=== PATIENT | female | born 1995 | race Caucasian/White ===

== ENCOUNTER 2018-01-02 22:32 | Emergency (ER) | payer SELFPAY ==
[2018-01-02 23:44] LABS: Urine Blood NEGATIVE (NEG); Urine Glucose NEGATIVE (NEG); Urine Protein NEGATIVE (NEG); Urine Specific Gravity 1.015 (1.005-1.030); Urine pH 7.5 (5.0-7.0)
[2018-01-03 01:39] LABS: Urine Bacteria <20 /HPF (<20); Urine Culture Reflex Order NOT NEEDED; Urine RBC <5 /HPF (NONE SEEN)
--- NOTE | 2018-01-03 02:25 | EDPHYS ---
Physician Documentation [facility] Name: Josh Gibson Age: 22 yrs Sex: Female : 1995 Arrival Date: 01/02/2018 Time: 22:33 Bed 16 Private MD: ED Physician Ollie Sapp HPI: 01/03 00:45 This 22 yrs old Female presents to ER via Ambulatory with complaints of gs Kidney Pain. 00:45 The patient complains of pain in the left low back. The pain radiates to the abdomen. gs Onset: The symptoms/episode began/occurred yesterday. Modifying factors: The symptoms are alleviated by nothing. the symptoms are aggravated by nothing. Associated signs and symptoms: Pertinent positives: dysuria, urinary frequency, Pertinent negatives: fever. Severity of pain: At its worst the pain was moderate in the emergency department the pain has improved markedly. The patient has experienced similar episodes in the past, a few times. The patient has not recently seen a physician. 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 - Social history:: Smoking status: Patient/guardian denies using tobacco. - Ebola Screening: : No symptoms or risks identified at this time. ROS: 01/03 00:45 All other systems are negative. gs Exam: 00:45 Head/Face: Normocephalic, atraumatic. Eyes: Pupils equal round and reactive to light, gs extra-ocular motions intact. Lids and lashes normal. Conjunctiva and sclera are non-icteric and not injected. Cornea within normal limits. Periorbital areas with no swelling, redness, or edema. ENT: Nares patent. No nasal discharge, no septal abnormalities noted. Tympanic membranes are normal and external auditory canals are clear. Oropharynx with no redness, swelling, or masses, exudates, or evidence of obstruction, uvula midline. Mucous membranes moist. Neck: Trachea midline, no thyromegaly or masses palpated, and no cervical lymphadenopathy. Supple, full range of motion without nuchal rigidity, or vertebral point tenderness. No Meningismus. Chest/axilla: Normal chest wall appearance and motion. Nontender with no deformity. No lesions are appreciated. Cardiovascular: Regular rate and rhythm with a normal S1 and S2. No gallops, murmurs, or rubs. Normal PMI, no JVD. No pulse deficits. Respiratory: Lungs have equal breath sounds bilaterally, clear to auscultation and percussion. No rales, rhonchi or wheezes noted. No increased work of breathing, no retractions or nasal flaring. Abdomen/GI: Soft, non-tender, with normal bowel sounds. No distension or tympany. No guarding or rebound. No evidence of tenderness throughout. Skin: Warm, dry with normal turgor. Normal color with no rashes, no lesions, and no evidence of cellulitis. MS/ Extremity: Pulses equal, no cyanosis. Neurovascular intact. Full, normal range of motion. Neuro: Awake and alert, GCS 15, oriented to person, place, time, and situation. Cranial nerves II-XII grossly intact. Motor strength 5/5 in all extremities. Sensory grossly intact. Cerebellar exam normal. Normal gait. 00:45 Constitutional: The patient appears alert, awake. 00:45 Back: CVA tenderness, that is moderate, is noted on the left. Vital Signs: 01/02 22:50 BP 120 / 68; Pulse 73; Resp 18; Temp 98.4(O); Pulse Ox 99% on R/A; Weight 72.57 kg; ea Height 5 ft. 3 in. (160.02 cm); Pain 7/10; 23:17 BP 132 / 87; Pulse 68; Resp 18; Pulse Ox 99% ; ea 01/03 00:30 BP 134 / 97; Pulse 71; Resp 20; Pulse Ox 98% on R/A; ea 01:30 BP 129 / 95; Pulse 72; Resp 18; Pulse Ox 99% ; ea 02:30 BP 118 / 80; Pulse 70; Resp 18; Pulse Ox 99% on R/A; ea 01/02 22:50 Body Mass Index 28.34 (72.57 kg, 160.02 cm) ea MDM: 01/02 23:33 Patient medically screened. gs 01/03 00:45 Differential diagnosis: nephrolithiasis, pyelonephritis, UTI. Data reviewed: vital gs signs, nurses notes. Response to treatment: the patient's symptoms have markedly improved after treatment, and as a result, I will discharge patient. 02:22 Counseling: I had a detailed discussion with the patient and/or guardian regarding: the historical points, exam findings, and any diagnostic results supporting the discharge/admit diagnosis, lab results, radiology results, the need for outpatient follow up, a family practitioner. 01/02 22:53 Order name: Urine Microscopic Only; Complete Time: 02:26 01/02 23:35 Order name: Urine Dipstick--Ancillary (enter results); Complete Time: 00:18 [facility] 01/02 22:53 Order name: Urine Test (obtain specimen); Complete Time: 23:39 01/02 22:53 Order name: Urine Dipstick-Ancillary (obtain specimen); Complete Time: 23:40 01/02 23:35 Order name: Urine --Ancillary (enter results); Complete Time: 00:18 [facility] 01/03 00:19 Order name: Stone Protocol CT Administered Medications: No medications were administered Disposition: 01/03/18 02:25 Discharged to Home. Impression: Other abdominal pain. - Condition is Stable. - Discharge Instructions: Flank Pain, [id number]. - Prescriptions for Naprosyn 500 mg Oral Tablet - take 1 tablet by ORAL route 2 times per day As needed take with food; 20 tablet. - Medication Reconciliation Form, Thank You Letter, Antibiotic Education, Prescription Opioid Use form. - Follow up: Private Physician; When: 2 - 3 days; Reason: Re-evaluation by your physician. Signatures: Dispatcher [facility] Isabel Bradley RN RN ea Starr, Gregory, MD MD Corrections: (The following items were deleted from the chart) 02:51 02:25 01/03/2018 02:25 Discharged to Home. Impression: Other abdominal pain. Condition ea is Stable. Forms are Medication Reconciliation Form, Thank You Letter, Antibiotic Education, Prescription Opioid Use. Follow up: Private Physician; When: 2 - 3 days; Reason: Re-evaluation by your physician. gs
--- NOTE | 2018-01-03 02:25 | ER ---
Nurse's Notes [facility] Name: Josh Gibson Age: 22 yrs Sex: Female : 1995 Arrival Date: 01/02/2018 Time: 22:33 Bed 16 Private MD: Diagnosis: Other abdominal pain Presentation: 01/02 22:50 Presenting complaint: Patient states: She has been having burning with urination and ea lower back pain that radiates to abdomen. Pt reports she has been taking azo tablets but the pain has not been relieved. Transition of care: patient was not received from another setting of care. Onset of symptoms was January 02, 2018. Risk Assessment: Do you want to hurt yourself or someone else? Patient reports no desire to harm self or others. Initial Sepsis Screen: Does the patient meet any 2 criteria? No. Patient's initial sepsis screen is negative. Does the patient have a suspected source of infection? Yes: Dysuria/Frequency/Urgency/UTI. Care prior to arrival: Medication(s) given: azo tablets. 22:50 Method Of Arrival: Ambulatory ea 22:50 Acuity: PJ 3 ea Triage Assessment: 22:50 General: Appears in no apparent distress. Behavior is calm, cooperative, appropriate ea for age. 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 - Social history:: Smoking status: Patient/guardian denies using tobacco. - Ebola Screening: : No symptoms or risks identified at this time. Screenin:57 Abuse screen: Denies threats or abuse. Nutritional screening: No deficits noted. ea Tuberculosis screening: No symptoms or risk factors identified. Fall Risk None identified. Assessment: 22:50 General: Appears in no apparent distress. Behavior is calm, cooperative, appropriate ea for age. Pain: Complains of pain in posterior aspect of right lateral abdomen, posterior aspect of left lateral abdomen, right lower quadrant and left lower quadrant Pain currently is 8 out of 10 on a pain scale. Quality of pain is described as aching, Pain began 2-3 days ago. Is continuous. Neuro: Level of Consciousness is awake, alert, obeys commands, Oriented to person, place, time, situation. Cardiovascular: Patient's skin is warm and dry. Respiratory: Airway is patent Respiratory effort is even, unlabored, Respiratory pattern is regular, symmetrical. GI: Abdomen is non-distended, Bowel sounds present X 4 quads. Abd is soft and non tender. : Reports burning with urination, since 2 or 3 days ago. EENT: No signs and/or symptoms were reported regarding the EENT system. Derm: Skin is pink, warm \T\ dry. Musculoskeletal: Circulation, motion, and sensation intact. 23:30 Reassessment: Patient and/or family updated on plan of care and expected duration. Pain ea level reassessed. Patient is alert, oriented x 3, equal unlabored respirations, skin warm/dry/pink. 01/03 00:30 Reassessment: Patient and/or family updated on plan of care and expected duration. Pain ea level reassessed. Patient is alert, oriented x 3, equal unlabored respirations, skin warm/dry/pink. 01:30 Reassessment: Patient and/or family updated on plan of care and expected duration. Pain ea level reassessed. Patient is alert, oriented x 3, equal unlabored respirations, skin warm/dry/pink. Pt taken to CT. 02:47 Reassessment: Patient and/or family updated on plan of care and expected duration. Pain ea level reassessed. Patient is alert, oriented x 3, equal unlabored respirations, skin warm/dry/pink. Discharge instruction given to patient, verbalized the understanding of instruction. Vital Signs: 01/02 22:50 BP 120 / 68; Pulse 73; Resp 18; Temp 98.4(O); Pulse Ox 99% on R/A; Weight 72.57 kg; ea Height 5 ft. 3 in. (160.02 cm); Pain 7/10; 23:17 BP 132 / 87; Pulse 68; Resp 18; Pulse Ox 99% ; ea 01/03 00:30 BP 134 / 97; Pulse 71; Resp 20; Pulse Ox 98% on R/A; ea 01:30 BP 129 / 95; Pulse 72; Resp 18; Pulse Ox 99% ; ea 02:30 BP 118 / 80; Pulse 70; Resp 18; Pulse Ox 99% on R/A; ea 01/02 22:50 Body Mass Index 28.34 (72.57 kg, 160.02 cm) ea ED Course: 01/02 22:33 Patient arrived in ED. ds1 22:44 Ollie Sapp MD is Attending Physician. 22:50 Patient has correct armband on for positive identification. Bed in low position. Call ea light in reach. Side rails up X2. 22:50 Arm band placed on right wrist. Patient placed in an exam room, on a stretcher, on ea pulse oximetry. 23:50 Isabel Fierro, RN is Primary Nurse. ea 23:56 Triage completed. ea 01/03 01:[address] via wheelchair. kw1 01:37 CT completed. Patient tolerated procedure well. Patient moved back from CT. kw1 01:[address] In Process Unspecified. EDCT 02:47 No provider procedures requiring assistance completed. Patient did not have IV access ea during this emergency room visit. Administered Medications: No medications were administered Outcome: 02:25 Discharge ordered by . 02:47 Discharged to home ambulatory. ea 02:47 Condition: improved 02:47 Discharge instructions given to patient, Instructed on discharge instructions, follow up and referral plans. medication usage, Demonstrated understanding of instructions, follow-up care, medications, Prescriptions given X 1. 02:51 Patient left the ED. ea Signatures: Dispatcher [employer] [facility] [place] ds1 Isabel Fierro RN RN ea Starr, Gregory, MD MD Amilcar Sosa kw1
--- NOTE | 2018-01-03 08:22 | RAD REPORT ---
EXAM DESCRIPTION: CT - Stone Protocol - 01/03/2018 4:47 am CLINICAL HISTORY: Flank pain. ABD PAIN COMPARISON: No comparisons TECHNIQUE: Axial images were obtained without oral or IV contrast. Lack of contrast limits solid org an and vascular assessment. The [id number] spans the entirety of the system partially obscuring uppermost abdomen and lung bases. Coronal reformatted images were obtained and reviewed. All CT scans are performed using dose optimization technique as appropriate and may include automated exposure control or mA/KV adjustment according to patient size. FINDINGS: The lower lung martinez are clear. Imaged portions of the liver and spleen show no suspicious findings on non-contrast imaging. The panc reas and adrenal glands are normal. No pathologic lymphadenopathy in the abdomen or pelvis. No urinary tract stones or obstructive uropathy. No bowel obstruction, free air, free fluid or abscess. Normal appendix noted. No significant bony abnormality. IMPRESSION: No urinary tract stones or obstructive uropathy.
== END 2018-01-03 02:51 | disposition home or self-care (01) ==
LOC: ER 22:32
DX: R10.9 Unspecified abdominal pain (principal); Z88.0 Allergy status to penicillin; Z88.3 Allergy status to other anti-infective agents
CPT/HCPCS: 74176; 76377; 81003; 81015; 81025; 99284

== ENCOUNTER 2018-10-22 20:50 | Emergency (ER) | payer SELFPAY ==
[2018-10-22 21:58] LABS: Urine Blood 3+ (NEG); Urine Glucose NEGATIVE (NEG); Urine Protein 3+ (NEG); Urine Specific Gravity >1.030 (1.005-1.030); Urine pH 5.5 (5.0-7.0)
--- NOTE | 2018-10-22 21:58 | EDPHYS ---
Physician Documentation [facility] Name: Josh Gibson Age: 22 yrs Sex: Female : 1995 Arrival Date: 10/22/2018 Time: 20:51 Bed 23 Private MD: ED Physician Sedrick Valderrama HPI: 10/22 21:09 This 22 yrs old Female presents to ER via Ambulatory with complaints of Pain snw With Urination, Urinary Frequency, blood in urine. 21:09 Onset: The symptoms/episode began/occurred suddenly, today. Associated signs and snw symptoms: Pertinent positives: dysuria. Modifying factors: The patient symptoms are alleviated by nothing. The patient has not experienced similar symptoms in the past. The patient has not recently seen a physician. 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 - Social history:: Smoking status: Patient/guardian denies using tobacco, Patient uses alcohol, occasionally. Patient/guardian denies using street drugs. - Ebola Screening: : Patient negative for fever greater than or equal to 101.5 degrees Fahrenheit, and additional compatible Ebola Virus Disease symptoms Patient denies exposure to infectious person Patient denies travel to an Ebola-affected area in the 21 days before illness onset. ROS: 21:08 Constitutional: Negative for fever, chills, and weight loss, Eyes: Negative for injury, snw pain, redness, and discharge, ENT: Negative for injury, pain, and discharge, Neck: Negative for injury, pain, and swelling, Cardiovascular: Negative for chest pain, palpitations, and edema, Respiratory: Negative for shortness of breath, cough, wheezing, and pleuritic chest pain, Abdomen/GI: Negative for abdominal pain, nausea, vomiting, diarrhea, and constipation, Back: Negative for injury and pain, MS/Extremity: Negative for injury and deformity, Skin: Negative for injury, rash, and discoloration, Neuro: Negative for headache, weakness, numbness, tingling, and seizure. 21:08 : Positive for urinary symptoms, urinary frequency, small amounts, hematuria, burning with urination. Exam: 21:08 Constitutional: This is a well developed, well nourished patient who is awake, alert, snw and in no acute distress. Head/Face: Normocephalic, atraumatic. Eyes: Pupils equal round and reactive to light, extra-ocular motions intact. Lids and lashes normal. Conjunctiva and sclera are non-icteric and not injected. Cornea within normal limits. Periorbital areas with no swelling, redness, or edema. ENT: Nares patent. No nasal discharge, no septal abnormalities noted. Tympanic membranes are normal and external auditory canals are clear. Oropharynx with no redness, swelling, or masses, exudates, or evidence of obstruction, uvula midline. Mucous membranes moist. Neck: Trachea midline, no thyromegaly or masses palpated, and no cervical lymphadenopathy. Supple, full range of motion without nuchal rigidity, or vertebral point tenderness. No Meningismus. Chest/axilla: Normal chest wall appearance and motion. Nontender with no deformity. No lesions are appreciated. Cardiovascular: Regular rate and rhythm with a normal S1 and S2. No gallops, murmurs, or rubs. Normal PMI, no JVD. No pulse deficits. Respiratory: Lungs have equal breath sounds bilaterally, clear to auscultation and percussion. No rales, rhonchi or wheezes noted. No increased work of breathing, no retractions or nasal flaring. Abdomen/GI: Soft, non-tender, with normal bowel sounds. No distension or tympany. No guarding or rebound. No evidence of tenderness throughout. Back: No spinal tenderness. No costovertebral tenderness. Full range of motion. Skin: Warm, dry with normal turgor. Normal color with no rashes, no lesions, and no evidence of cellulitis. MS/ Extremity: Pulses equal, no cyanosis. Neurovascular intact. Full, normal range of motion. Neuro: Awake and alert, GCS 15, oriented to person, place, time, and situation. Cranial nerves II-XII grossly intact. Motor strength 5/5 in all extremities. Sensory grossly intact. Cerebellar exam normal. Normal gait. Psych: Awake, alert, with orientation to person, place and time. Behavior, mood, and affect are within normal limits. Vital Signs: 20:55 BP 126 / 76; Pulse 83; Resp 20; Temp 98.6(O); Pulse Ox 98% on R/A; Weight 77.11 kg (R); fc Height 5 ft. 2 in. (157.48 cm) (R); Pain 3/10; 22:10 BP 122 / 78; Pulse 80; Resp 18; Temp 98; Pulse Ox 100% on R/A; Pain 0/10; mg2 20:55 Body Mass Index 31.09 (77.11 kg, 157.48 cm) fc MDM: 21:04 Patient medically screened. snw 21:59 Data reviewed: vital signs, nurses notes. Data interpreted: Pulse oximetry: on room air snw is 98 %. Interpretation: normal. Counseling: I had a detailed discussion with the patient and/or guardian regarding: the historical points, exam findings, and any diagnostic results supporting the discharge/admit diagnosis, lab results, the need for outpatient follow up, to return to the emergency department if symptoms worsen or persist or if there are any questions or concerns that arise at home. Special discussion: Based on the patient's Hx, exam, and Dx evaluation, there is no indication for emergent surgery or inpatient Tx. It is understood by the patient/guardian that if the Sx's persist or worsen they need to return immediately for re-evaluation. Based on the history and exam findings, there is no indication for further emergent testing or inpatient evaluation. I discussed with the patient/guardian the need to see the primary care provider for further evaluation of the symptoms. 10/22 21:04 Order name: Urine Culture snw 10/22 21:04 Order name: Urine Microscopic Only; Complete Time: 22:25 snw 10/22 21:40 Order name: Urine Dipstick--Ancillary (enter results); Complete Time: 22:00 cm6 10/22 21:40 Order name: Urine --Ancillary (enter results); Complete Time: 22:00 cm6 10/22 21:04 Order name: Urine Test (obtain specimen); Complete Time: 21:48 snw 10/22 21:04 Order name: Urine Dipstick-Ancillary (obtain specimen); Complete Time: 21:48 snw Administered Medications: 22:09 Drug: Macrobid 100 mg Route: PO; mg2 22:09 Follow up: Response: No adverse reaction; Medication administered at discharge. mg2 22:09 Drug: Pyridium 100 mg Route: PO; mg2 22:09 Follow up: Response: No adverse reaction; Medication administered at discharge. mg2 Disposition: 10/23 04:12 Co-signature as Attending Physician, Sedrick Valderrama MD I agree with the assessment and kdr plan of care. Disposition: 10/22/18 21:57 Discharged to Home. Impression: Urinary tract infection, site not specified. - Condition is Stable. - Discharge Instructions: Urinary Tract Infection, Adult, Rehydration, Adult. - Prescriptions for Macrobid 100 mg Oral Capsule - take 1 capsule by ORAL route every 12 hours for 10 days; 20 capsule. - Work release form, Medication Reconciliation Form, Thank You Letter, Antibiotic Education, Prescription Opioid Use form. - Follow up: Private Physician; When: 2 - 3 days; Reason: Recheck today's complaints, Continuance of care, Re-evaluation by your physician. Follow up: Emergency Department; When: As needed; Reason: Worsening of condition. Signatures: Dispatcher [employer] EDCT Sedrick Valderrama MD MD [facility] Mitali Nails, SENIOR VICE PRESIDENT AND CHIEF INFORMATION OFFICER-C SENIOR VICE PRESIDENT AND CHIEF INFORMATION OFFICER-[employer] Juliana Camacho, BERTA RN Josh Hendricks, BERTA RN mg2 Corrections: (The following items were deleted from the chart) 10/22 22:11 21:57 10/22/2018 21:57 Discharged to Home. Impression: Urinary tract infection, site mg2 not specified. Condition is Stable. Forms are Medication Reconciliation Form, Thank You Letter, Antibiotic Education, Prescription Opioid Use. Follow up: Private Physician; When: 2 - 3 days; Reason: Recheck today's complaints, Continuance of care, Re-evaluation by your physician. Follow up: Emergency Department; When: As needed; Reason: Worsening of condition. snw
--- NOTE | 2018-10-22 21:58 | ER ---
Nurse's Notes [facility] Name: Josh Gibson Age: 22 yrs Sex: Female : 1995 Arrival Date: 10/22/2018 Time: 20:51 Bed 23 Private MD: Diagnosis: Urinary tract infection, site not specified Presentation: 10/22 20:55 Presenting complaint: Patient states: that she is having urinary frequency, burning, fc blood in urine and decreased urine output when she does go. Transition of care: patient was not received from another setting of care. Onset of symptoms was October 22, 2018 at 15:00. Risk Assessment: Do you want to hurt yourself or someone else? Patient reports no desire to harm self or others. Initial Sepsis Screen: Does the patient meet any 2 criteria? No. Patient's initial sepsis screen is negative. Does the patient have a suspected source of infection? No. Patient's initial sepsis screen is negative. Care prior to arrival: None. 20:55 Method Of Arrival: Ambulatory 20:55 Acuity: PJ 3 Triage Assessment: 20:55 General: Appears comfortable, slender, Behavior is calm, cooperative, appropriate for age. Pain: Complains of pain in pelvis Pain currently is 3 out of 10 on a pain scale. at worst was 7 out of 10 on a pain scale. Quality of pain is described as burning, Pain began gradually, Is intermittent, Aggravated by urination. EENT: No deficits noted. Neuro: Level of Consciousness is awake, alert, obeys commands, Oriented to person, place, time, situation, Appropriate for age. Cardiovascular: No deficits noted. Respiratory: No deficits noted. GI: No deficits noted. : Reports burning with urination, urinary frequency. Derm: Skin is pink, warm \T\ dry. Musculoskeletal: Circulation, motion, and sensation intact. Capillary refill < 3 seconds, Range of motion: intact in all extremities. 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 - Social history:: Smoking status: Patient/guardian denies using tobacco, Patient uses alcohol, occasionally. Patient/guardian denies using street drugs. - Ebola Screening: : Patient negative for fever greater than or equal to 101.5 degrees Fahrenheit, and additional compatible Ebola Virus Disease symptoms Patient denies exposure to infectious person Patient denies travel to an Ebola-affected area in the 21 days before illness onset. Screenin:08 Abuse screen: Denies threats or abuse. Nutritional screening: No deficits noted. Tuberculosis screening: No symptoms or risk factors identified. Fall Risk None identified. Assessment: 21:20 Reassessment: pls see triage assessment. mg2 Vital Signs: 20:55 BP 126 / 76; Pulse 83; Resp 20; Temp 98.6(O); Pulse Ox 98% on R/A; Weight 77.11 kg (R); fc Height 5 ft. 2 in. (157.48 cm) (R); Pain 3/10; 22:10 BP 122 / 78; Pulse 80; Resp 18; Temp 98; Pulse Ox 100% on R/A; Pain 0/10; mg2 20:55 Body Mass Index 31.09 (77.11 kg, 157.48 cm) ED Course: 20:51 Patient arrived in ED. am2 20:55 Arm band placed on Patient placed in an exam room, on a stretcher. fc 20:58 Josh Hendricks, BERTA is Primary Nurse. mg2 21:03 Mitali Nails FNP-C is PHCP. snw 21:03 Sedrick Valderrama MD is Attending Physician. snw 21:07 Triage completed. fc 21:08 Patient has correct armband on for positive identification. Bed in low position. Call light in reach. 21:08 No provider procedures requiring assistance completed. fc 22:10 Patient did not have IV access during this emergency room visit. mg2 Administered Medications: 22:09 Drug: Macrobid 100 mg Route: PO; mg2 22:09 Follow up: Response: No adverse reaction; Medication administered at discharge. mg2 22:09 Drug: Pyridium 100 mg Route: PO; mg2 22:09 Follow up: Response: No adverse reaction; Medication administered at discharge. mg2 Outcome: 21:57 Discharge ordered by . snw 22:10 Discharged to home ambulatory, with friend. mg2 22:10 Condition: stable 22:10 Discharge instructions given to patient, friend, Instructed on discharge instructions, follow up and referral plans. medication usage, Demonstrated understanding of instructions, follow-up care, medications, Prescriptions given X 1. 22:11 Patient left the ED. mg2 Addendum: 10/25/2018 08:34 Addendum: Culture Results: Positive urine culture. No further action required. Bacteria s s sensitive to prescribed antibiotic. Signatures: Mitali Nails, LOCKSTITCH WAISTBAND SETTER-C LOCKSTITCH WAISTBAND SETTER-Csnw Juliana Camacho, RN RN Melita Ventura RN RN [place] Case Michele RN RN mg2
[2018-10-22 22:10] LABS: Urine Bacteria 20-50 /HPF (<20); Urine Culture Reflex Order NOT NEEDED; Urine Mucus 1+ /HPF (NONE SEEN); Urine RBC TNTC /HPF (NONE SEEN)
[2018-10-22] MEDS ORDERED: PHENAZOPYRIDINE 100MG TAB PO ONE (22:19)
[2018-10-22] MEDS ORDERED: NITROFURAN MACRO 100 MG CAP PO ONE (22:19)
== END 2018-10-22 22:11 | disposition home or self-care (01) ==
LOC: ER 20:50
DX: N39.0 Urinary tract infection, site not specified (principal); Z88.0 Allergy status to penicillin; Z88.3 Allergy status to other anti-infective agents
CPT/HCPCS: 81003; 81015; 81025; 87077; 87086; 87088; 87186; 99283

== ENCOUNTER 2018-12-17 14:47 | Emergency (ER) | payer SELFPAY ==
--- NOTE | 2018-12-17 15:17 | EDPHYS ---
Physician Documentation [facility] Name: Josh Gibson Age: 23 yrs Sex: Female : 1995 Arrival Date: 12/17/2018 Time: 14:49 Bed 16 Private MD: ED Physician Emanuel Gonzalez HPI: 12/17 15:14 This 23 yrs old Female presents to ER via Ambulatory with complaints of kb Urinary Problem. 15:14 The patient presents with urinary symptoms, dysuria, frequency. Onset: The kb symptoms/episode began/occurred this morning. Modifying factors: The symptoms are alleviated by nothing, the symptoms are aggravated by urinating. Associated signs and symptoms: Pertinent positives: dysuria, urinary frequency. Severity of symptoms: At their worst the symptoms were moderate, in the emergency department the symptoms are unchanged. The patient has experienced similar episodes in the past, several times. The patient has not recently seen a physician. Pt reports she has same symptoms as last time she had a UTI. frequency, burning with urination. 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 - Social history:: Smoking status: Patient/guardian denies using tobacco. - Ebola Screening: : No symptoms or risks identified at this time. ROS: 15:07 Constitutional: Negative for fever, chills, and weight loss, Neck: Negative for injury, kb pain, and swelling, Cardiovascular: Negative for chest pain, palpitations, and edema, Respiratory: Negative for shortness of breath, cough, wheezing, and pleuritic chest pain, Abdomen/GI: Negative for abdominal pain, nausea, vomiting, diarrhea, and constipation, MS/Extremity: Negative for injury and deformity, Skin: Negative for injury, rash, and discoloration, Neuro: Negative for headache, weakness, numbness, tingling, and seizure. 15:11 : Positive for urinary symptoms, urinary frequency, small amounts, burning with kb urination. Exam: 15:11 Constitutional: This is a well developed, well nourished patient who is awake, alert, kb and in no acute distress. Head/Face: Normocephalic, atraumatic. Chest/axilla: Normal chest wall appearance and motion. Nontender with no deformity. No lesions are appreciated. Cardiovascular: Regular rate and rhythm with a normal S1 and S2. No gallops, murmurs, or rubs. Normal PMI, no JVD. No pulse deficits. Respiratory: Lungs have equal breath sounds bilaterally, clear to auscultation and percussion. No rales, rhonchi or wheezes noted. No increased work of breathing, no retractions or nasal flaring. Back: No spinal tenderness. No costovertebral tenderness. Full range of motion. Skin: Warm, dry with normal turgor. Normal color with no rashes, no lesions, and no evidence of cellulitis. MS/ Extremity: Pulses equal, no cyanosis. Neurovascular intact. Full, normal range of motion. Neuro: Awake and alert, GCS 15, oriented to person, place, time, and situation. Cranial nerves II-XII grossly intact. Motor strength 5/5 in all extremities. Sensory grossly intact. Cerebellar exam normal. Normal gait. 15:11 Abdomen/GI: Inspection: abdomen appears normal, Bowel sounds: normal, in all quadrants, Palpation: soft, in all quadrants, mild abdominal tenderness, in the suprapubic area. Vital Signs: 14:52 BP 140 / 75; Pulse 89; Resp 16; Temp 99.1; Pulse Ox 98% on R/A; Weight 72.57 kg; Height la1 5 ft. 4 in. (162.56 cm); 14:52 Body Mass Index 27.46 (72.57 kg, 162.56 cm) la1 MDM: 14:54 Patient medically screened. kb 15:07 Data reviewed: vital signs, nurses notes. Data interpreted: Pulse oximetry: on room air kb is 98 %. Interpretation: normal. Counseling: I had a detailed discussion with the patient and/or guardian regarding: the historical points, exam findings, and any diagnostic results supporting the discharge/admit diagnosis, lab results, the need for outpatient follow up, a family practitioner, to return to the emergency department if symptoms worsen or persist or if there are any questions or concerns that arise at home. 12/17 14:55 Order name: Urine Microscopic Only kb 12/17 15:18 Order name: Urine Dipstick--Ancillary (enter results) eb 12/17 14:55 Order name: Urine Test (obtain specimen); Complete Time: 15:08 kb 12/17 14:55 Order name: Urine Dipstick-Ancillary (obtain specimen); Complete Time: 15:09 kb 12/17 15:18 Order name: Urine --Ancillary (enter results) eb Administered Medications: 15:18 Drug: Macrobid 100 mg Route: PO; hj 15:28 Follow up: Response: No adverse reaction hj Disposition: 12/17/18 15:16 Discharged to Home. Impression: Urinary tract infection, site not specified. - Condition is Stable. - Discharge Instructions: Urinary Tract Infection, Adult, [id number]. - Prescriptions for Macrobid 100 mg Oral Capsule - take 1 capsule by ORAL route every 12 hours for 10 days; 20 capsule. - Medication Reconciliation Form, Thank You Letter, Antibiotic Education, Prescription Opioid Use, Work release form form. - Follow up: Emergency Department; When: As needed; Reason: Worsening of condition. Follow up: Private Physician; When: 2 - 3 days; Reason: Recheck today's complaints, Continuance of care, Re-evaluation by your physician. Addendum: 12/22/2018 02:08 Co-signature as Attending Physician, Emanuel Gonzalez MD. m a2 Signatures: Dispatcher [employer] Janet Delgado, ADILSON BLAKE-Godwin Wilson RN RN la1 Fredi Mccabe RN RN hj Alzahri, Mohammad, MD MD ma2 Corrections: (The following items were deleted from the chart) 12/17 15:15 15:14 The patient has not experienced similar symptoms in the past, kb kb 15:33 15:16 12/17/2018 15:16 Discharged to Home. Impression: Urinary tract infection, site hj not specified. Condition is Stable. Forms are Medication Reconciliation Form, Thank You Letter, Antibiotic Education, Prescription Opioid Use. Follow up: Emergency Department; When: As needed; Reason: Worsening of condition. Follow up: Private Physician; When: 2 - 3 days; Reason: Recheck today's complaints, Continuance of care, Re-evaluation by your physician. kb
--- NOTE | 2018-12-17 15:17 | ER ---
Nurse's Notes [facility] Name: Josh Gibson Age: 23 yrs Sex: Female : 1995 Arrival Date: 12/17/2018 Time: 14:49 Bed 16 Private MD: Diagnosis: Urinary tract infection, site not specified Presentation: 12/17 14:53 Presenting complaint: Patient states: I am having urinary frequency and burning since la1 this morning, I am prone to UTI's. Was here a couple weeks ago with a UTI and it got better but now it's back. Transition of care: patient was not received from another setting of care. Onset of symptoms was December 17, 2018. Risk Assessment: Do you want to hurt yourself or someone else? Patient reports no desire to harm self or others. Initial Sepsis Screen: Does the patient meet any 2 criteria? No. Patient's initial sepsis screen is negative. Does the patient have a suspected source of infection? No. Patient's initial sepsis screen is negative. Care prior to arrival: None. 14:53 Method Of Arrival: Ambulatory la1 14:53 Acuity: PJ 4 la1 Triage Assessment: 15:31 General: Appears in no apparent distress. uncomfortable, Behavior is calm, cooperative, hj appropriate for age. Pain: Complains of pain in suprapubic area. 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 - Social history:: Smoking status: Patient/guardian denies using tobacco. - Ebola Screening: : No symptoms or risks identified at this time. Screenin:30 Abuse screen: Denies threats or abuse. Denies injuries from another. Nutritional hj screening: No deficits noted. Tuberculosis screening: No symptoms or risk factors identified. Fall Risk None identified. Assessment: 15:31 General: Appears in no apparent distress. uncomfortable, Behavior is calm, cooperative, hj appropriate for age. Pain: Complains of pain in suprapubic area. Neuro: Level of Consciousness is awake, alert, obeys commands, Oriented to person, place, time, situation, Appropriate for age. Cardiovascular: Capillary refill < 3 seconds Patient's skin is warm and dry. Respiratory: Airway is patent Trachea Respiratory effort is even, unlabored, Respiratory pattern is regular, symmetrical. GI: No signs and/or symptoms were reported involving the gastrointestinal system. : No signs and/or symptoms were reported regarding the genitourinary system. : Reports burning with urination. EENT: No signs and/or symptoms were reported regarding the EENT system. Derm: No signs and/or symptoms reported regarding the dermatologic system. Musculoskeletal: No signs and/or symptoms reported regarding the musculoskeletal system. Vital Signs: 14:52 BP 140 / 75; Pulse 89; Resp 16; Temp 99.1; Pulse Ox 98% on R/A; Weight 72.57 kg; Height la1 5 ft. 4 in. (162.56 cm); 14:52 Body Mass Index 27.46 (72.57 kg, 162.56 cm) la1 ED Course: 14:49 Patient arrived in ED. mr 14:50 [facility] Lo[facility] kb 14:50 Emanuel Gonzalez MD is Attending Physician. kb 14:53 Arm band placed on left wrist. la1 14:54 Triage completed. la1 14:57 Fredi Mccabe, BERTA is Primary Nurse. hj 15:31 Patient has correct armband on for positive identification. Bed in low position. Call hj light in reach. Side rails up X 1. 15:32 No provider procedures requiring assistance completed. Patient did not have IV access hj during this emergency room visit. Administered Medications: 15:18 Drug: Macrobid 100 mg Route: PO; hj 15:28 Follow up: Response: No adverse reaction Outcome: 15:16 Discharge ordered by . kb 15:32 Discharged to home ambulatory. hj 15:32 Condition: stable 15:32 Discharge instructions given to patient, Instructed on discharge instructions, follow up and referral plans. medication usage, Demonstrated understanding of instructions, follow-up care, medications, Prescriptions given X 1. 15:33 Patient left the ED. hj Addendum: 12/21/2018 08:20 Addendum: Culture Results: Positive urine culture. Bacteria is resistant to, has s s intermediate sensitivity, or is not tested against prescribed antibiotics. Report given to FABIO for further evaluation and then to rail assembler for follow up with patient. Phone call Attempt #1 called patient who reports she is feeling better and still plans to follow up with PCP. Signatures: Janet Loja, ADILSON BLAKE-Malinda Arevalo Shelby RN RN ss Godwin Valenzuela RN RN la1 Fredi Mccabe RN RN hj
[2018-12-17 15:29] LABS: Urine RBC <5 /HPF (NONE SEEN)
[2018-12-17 15:30] LABS: Urine Bacteria 20-50 /HPF (<20); Urine Culture Reflex Order REFLEXED; Urine Mucus 1+ /HPF (NONE SEEN)
[2018-12-17] MEDS ORDERED: NITROFURAN MACRO 100 MG CAP PO ONE (15:40)
[2018-12-17 18:06] LABS: Urine Blood TRACE (NEG); Urine Glucose NEGATIVE (NEG); Urine Protein TRACE (NEG); Urine pH 8.5 (5.0-7.0)
== END 2018-12-17 15:33 | disposition home or self-care (01) ==
LOC: ER 14:47
DX: N39.0 Urinary tract infection, site not specified (principal); J45.909 Unspecified asthma, uncomplicated; Z88.1 Allergy status to other antibiotic agents; Z88.0 Allergy status to penicillin
CPT/HCPCS: 81003; 81015; 81025; 87077; 87086; 87088; 87186; 99283